=== PATIENT | male | born 1955 | race Caucasian/White ===

== ENCOUNTER 2018-01-09 06:16 | Day surgery (SDC) | payer BC, OTHER ==
[2017-12-28 12:03] VITALS: BMI 24.6
[2018-01-09] MEDS ORDERED: BUPIVACAINE HCL 0.25% 125 MG/50 ML VIAL ONE (06:59)
[2018-01-09] MEDS ORDERED: LIDOCAINE HCL 2% (20ML MULTI-DOSE VIAL) NR ONE (06:59)
[2018-01-09] MEDS ORDERED: SUCCINYLCHOLINE CHLORIDE 200 MG/10 ML VIAL ONE (07:13)
[2018-01-09] MEDS ORDERED: PROPOFOL 20 ML ONE ×2 (07:13)
[2018-01-09] MEDS ORDERED: MIDAZOLAM HCL 2 MG/2 ML SINGLE DOSE VIAL ONE (07:13)
[2018-01-09] MEDS ORDERED: DEXAMETHASONE SOD PHOSPHATE 4 MG/1 ML VIAL ONE (07:15)
[2018-01-09] MEDS ORDERED: KETOROLAC TROMETHAMINE 30 MG/1 ML VIAL ONE (07:15)
[2018-01-09] MEDS ORDERED: ONDANSETRON 4 MG/2 ML VIAL ONE (07:15)
[2018-01-09] MEDS ORDERED: LIDOCAINE HCL 2% (50ML VIAL) INF ONE (07:54)
[2018-01-09 08:50] VITALS: BP 102/67; PULSE 62
[2018-01-09 08:52] VITALS: TEMP 98
[2018-01-09] MEDS ORDERED: oxyCODONE HCL 5 MG TABLET PO PRN (09:32)
[2018-01-09] MEDS ORDERED: ACETAMINOPHEN 325 MG TABLET (FP) PO PRN (09:32)
[2018-01-09] MEDS ORDERED: ONDANSETRON 4 MG/2 ML VIAL IVPUSH PRN (09:32)
[2018-01-09] MEDS ORDERED: LACTATED RINGERS SOLUTION 1,000 ML IV SCH (09:45)
--- NOTE | 2018-01-10 08:42 | OP ---
DATE OF OPERATION: 01/09/2018 PREOPERATIVE DIAGNOSIS: Right de Quervain tenosynovitis. POSTOPERATIVE DIAGNOSIS: Right de Quervain tenosynovitis. OPERATIVE PROCEDURE: Right de Quervain release. SURGEON: Alen Goins MD ANESTHESIA: Local with sedation. COMPLICATIONS: None. ESTIMATED BLOOD LOSS: Minimal. INDICATION FOR PROCEDURE: The patient is a 62-year-old male with the above finding indicated for operative treatment. Risks, benefits, and alternatives were discussed with the patient at length. Proper informed consent was obtained. DESCRIPTION OF PROCEDURE: After proper identification of the patient, correct operative site, patient brought to the operating room, placed supine on the table with all prominences well padded. Sedation was given by the anesthesiologist. Local anesthesia was given with 2% lidocaine. Right upper extremity was prepped and draped in the usual sterile fashion. Well-padded tourniquet was placed over the sterile prep. Esmarch bandage used to exsanguinate right upper extremity. Tourniquet was inflated to 250 mmHg. A transverse incision made over the right first dorsal compartment. Incision was taken sharply through skin with blunt and sharp dissection through subcutaneous tissues. First dorsal compartment was identified. Neurovascular structures were carefully protected. First dorsal compartment was divided along its longitudinal border. Significant tenosynovitis was found within the this compartment, and a separate subcompartment was found. The subcompartment was released, and there were no further subcompartments. Wound was irrigated with saline. There was no subluxation of the tendons, and wound was repaired with a 4-0 Vicryl and 4-0 Monocryl suture. Steri-Strips, sterile dressings were applied. Patient was reversed from anesthesia and brought to the recovery room in stable condition. He tolerated the procedure well. ALEN GOINS M.D. [id number]
== END 2018-01-09 09:00 | disposition home or self-care (01) ==
LOC: FASU 06:16
PROVIDERS: ATTEND Orthopaedic Surgery Hand Surgery
PROC: 0LN50ZZ Release Right Lower Arm and Wrist Tendon, Open Approach (ICD-10-PCS; principal; 2018-01-09 08:00)
DX: M65.4 Radial styloid tenosynovitis [de Quervain] (principal)

== ENCOUNTER 2019-01-01 07:00 | Day surgery (SDC) | payer OTHER ==
[2018-12-16 17:46] VITALS: BMI 24.6
[2019-01-01] MEDS: CIPROFLOXACIN 0.3% EYE DROPS 5 ML BOTTLE ONE ×3 (07:30→07:40)
[2019-01-01] MEDS: PHENYLEPHRINE 2.5% OPHTH SOLN 15 ML BOTTLE ONE ×3 (07:30→07:40)
[2019-01-01] MEDS: TROPICAMIDE 1% OPHTH SOLN 15 ML BOTTLE ONE ×3 (07:30→07:40)
[2019-01-01] MEDS: CYCLOPENTOLATE 2% OPHTH SOLN 2 ML BOTTLE ONE ×3 (07:30→07:40)
[2019-01-01] MEDS ORDERED: MIDAZOLAM HCL 2 MG/2 ML SINGLE DOSE VIAL ONE (08:23)
[2019-01-01] MEDS ORDERED: BSS (NA/CA/MG/K) BALANCED SALT SOLUTION OPHTH SOLN 15 ML BOTTLE ONE (08:31)
[2019-01-01] MEDS ORDERED: CARBACHOL 0.01% INTRA-OCULAR 1.5 ML VIAL ONE (08:32)
[2019-01-01] MEDS ORDERED: NEO/POLYMYX B SULF/DEXAMETH OPHTHALMIC 5ML BOTTLE ONE (08:32)
[2019-01-01] MEDS ORDERED: TETRACAINE 0.5% OPHTH SOLN 2 ML BOTTLE ONE (08:50)
[2019-01-01 09:39] VITALS: BP 110/69; PULSE 69; TEMP 98
--- NOTE | 2019-01-01 18:34 | OP ---
DATE OF OPERATION: 01/01/2019 OPERATIVE PROCEDURE: Lens Phacoemulsification with Posterior Chamber Intraocular Lens Placement, Right Eye. PREOPERATIVE DIAGNOSIS: Visually Significant Cataract of Right Eye. POSTOPERATIVE DIAGNOSIS: Visually Significant Cataract of Right Eye. SURGEON: Ced Mauro MD ANESTHESIA: MAC ANESTHESIOLOGIST: PROCEDURE: The patient was brought to the operating room and placed under monitored anesthesia care by Anesthesia. A drop of Tetracaine was then placed over the right eye. The patient was then prepped and draped in the usual sterile manner. A speculum was then placed over the right eye. The eye was then well irrigated with copious amounts of BSS (balanced salt solution). The operating microscope was then moved into position. A paracentesis was performed using a 15 degree blade. At this point 0.5 mL of 1% preservative free-lidocaine was injected into the anterior chamber. Amvisc plus was then injected into the anterior chamber. A clear corneal incision was then formed using a 2.2 mm keratome. A capsulorrhexis was then performed in a continuous circular fashion beginning with a cystotome completed with an Utratas forceps. Hydrodissection was then performed using BSS on a cannula. The phaco probe was then introduced through the corneal wound and the cataract was removed using the phaco chop technique. Approximately 3 seconds of absolute phaco time was used. The remaining cortex was then removed using irrigation and aspiration with an I/A probe. The capsule was then filled with regular Amvisc and the capsule was noted to be intact. A previously selected foldable posterior chamber intraocular lens was then injected into the capsule through the corneal wound using a lens injector. It was then dialed into position using a Sinskey hook. The Amvisc was then removed using irrigation and aspiration. Miostat was then injected through the paracentesis to constrict the pupil. The paracentesis and corneal wound were then hydrated and noted to be watertight. A drop of Maxitrol was then placed over the eye. The speculum was removed and clear shield was taped over the eye. The patient tolerated the procedure well and there were no surgical complications. The patient was asked to follow up in my office the next day. Zhao [id number]
== END 2019-01-01 09:47 | disposition home or self-care (01) ==
LOC: FASU 07:00
PROVIDERS: ATTEND Ophthalmology
PROC: 08RJ3JZ Replacement of Right Lens with Synthetic Substitute, Percutaneous Approach (ICD-10-PCS; principal; 2019-01-01 09:01)
DX: H26.8 Other specified cataract (principal)

== ENCOUNTER 2019-01-20 06:23 | Day surgery (SDC) | payer OTHER ==
[2019-01-17 10:34] VITALS: BMI 24.6
[2019-01-20] MEDS ORDERED: LIDOCAINE 1% P/F 10 MG/ML VIAL ONE (07:10)
[2019-01-20] MEDS: CYCLOPENTOLATE 2% OPHTH SOLN 2 ML BOTTLE ONE ×3 (07:10→07:20)
[2019-01-20] MEDS: CIPROFLOXACIN 0.3% EYE DROPS 5 ML BOTTLE ONE ×3 (07:10→07:20)
[2019-01-20] MEDS: PHENYLEPHRINE 2.5% OPHTH SOLN 15 ML BOTTLE ONE ×3 (07:10→07:20)
[2019-01-20] MEDS: TROPICAMIDE 1% OPHTH SOLN 15 ML BOTTLE ONE ×3 (07:10→07:20)
[2019-01-20] MEDS ORDERED: CARBACHOL 0.01% INTRA-OCULAR 1.5 ML VIAL ONE (07:11)
[2019-01-20] MEDS ORDERED: BSS (NA/CA/MG/K) BALANCED SALT SOLUTION OPHTH SOLN 15 ML BOTTLE ONE (07:11)
[2019-01-20] MEDS ORDERED: TETRACAINE 0.5% OPHTH SOLN 2 ML BOTTLE ONE (07:11)
[2019-01-20] MEDS ORDERED: NEO/POLYMYX B SULF/DEXAMETH OPHTHALMIC 5ML BOTTLE ONE (07:11)
[2019-01-20] MEDS ORDERED: EPINEPHrine/PF 1 MG/1 ML (1:1,000) AMPULE ONE (07:12)
[2019-01-20] MEDS ORDERED: MIDAZOLAM HCL 2 MG/2 ML SINGLE DOSE VIAL ONE (08:36)
[2019-01-20 09:39] VITALS: PULSE 66; TEMP 97.8
[2019-01-20] MEDS ORDERED: ACETAMINOPHEN 325 MG TABLET (FP) ONE (10:04)
[2019-01-20 10:16] VITALS: BP 116/72
[2019-01-20] MEDS ORDERED: ACETAMINOPHEN 325 MG TABLET (FP) PO PRN (10:51)
--- NOTE | 2019-01-20 11:54 | OP ---
DATE OF OPERATION: 01/20/2019 OPERATIVE PROCEDURE: Lens Phacoemulsification with Posterior Chamber Intraocular Lens Placement Left Eye. PREOPERATIVE DIAGNOSIS: Visually Significant Cataract of Left Eye. POSTOPERATIVE DIAGNOSIS: Visually Significant Cataract of Left Eye. SURGEON: Ced Raphael MD ANESTHESIA: MAC ANESTHESIOLOGIST: PROCEDURE: The patient was brought to the operating room and placed under monitored anesthesia care by Anesthesia. A drop of Tetracaine was then placed over the left eye. The patient was then prepped and draped in the usual sterile manner. A speculum was then placed over the left eye. The eye was then well irrigated with copious amounts of BSS (balanced salt solution). The operating microscope was then moved into position. A paracentesis was performed using a 15 degree blade. At this point 0.5 mL of 1% preservative-free lidocaine was injected into the anterior chamber. Amvisc plus was then injected into the anterior chamber. A clear corneal incision was then formed using a 2.2 mm keratome. A capsulorrhexis was then performed in a continuous circular fashion beginning with a cystotome, completed with an Utratas forceps. Hydrodissection was then performed using BSS on a cannula. The phaco probe was then introduced through the corneal wound and the cataract was removed using the phaco chop technique. Approximately 3 seconds of absolute phaco time was used. The remaining cortex was then removed using irrigation and aspiration with an I/A probe. The capsule was then filled with regular Amvisc and the capsule was noted to be intact. A previously selected foldable posterior chamber intraocular lens was then injected into the capsule through the corneal wound using a lens injector. It was then dialed into position using a Sinskey hook. The Amvisc was then removed using irrigation and aspiration. Miostat was then injected through the paracentesis to constrict the pupil. The paracentesis and corneal wound were then hydrated and noted to be watertight. A drop of Maxitrol was then placed over the eye. The speculum was removed, and clear shield was taped over the eye. The patient tolerated the procedure well, and there were no surgical complications. The patient was asked to follow up in my office the next day. CED RAPHAEL M.D. [id number]
== END 2019-01-20 10:15 | disposition home or self-care (01) ==
LOC: FASU 06:23
PROVIDERS: ATTEND Ophthalmology
PROC: 08RK3JZ Replacement of Left Lens with Synthetic Substitute, Percutaneous Approach (ICD-10-PCS; principal; 2019-01-20 08:55)
DX: H26.8 Other specified cataract (principal)